=== PATIENT | female | born 1990 | race Hispanic/Latino ===

== ENCOUNTER 2018-07-19 12:38 | Outpatient (CLI) | payer OTHER | END 2018-07-19 12:39 | disposition home or self-care (01) | LOC: C.LAB 12:38 | DX: Z34.83 Encounter for supervision of other normal pregnancy, third trimester (principal) ==

== ENCOUNTER 2018-10-15 07:20 | Inpatient (IN) | payer MEDICAID | END 2018-10-18 20:20 | disposition home or self-care (01) | DRG 370 | LOC: C.4D 07:20 → C.4M 14:25 | PROVIDERS: ADMIT Obstetrics & Gynecology | PROC: 10D00Z1 Extraction of Products of Conception, Low, Open Approach (ICD-10-PCS; principal; 2018-10-15) ==